=== PATIENT | male | born 1950 | race Caucasian/White ===

== ENCOUNTER → 2017-10-02 | Outpatient (CLI) | payer OTHER | END | disposition home or self-care (01) | LOC: RX STUDY 08:15 | DX: R19.5 Other fecal abnormalities (principal) ==

== ENCOUNTER 2018-03-22 16:54 | Emergency (ER) | payer OTHER ==
[~2018-03-22] VITALS: Ht 231.1 cm; Wt 88.9 kg
[2018-03-22] MEDS ORDERED: FORTAMET1000 MG (17:01)
[2018-03-22] MEDS ORDERED: ZOCOR20 MG (17:02)
[2018-03-22] MEDS ORDERED: METOPROLOL SUCC50 MG (17:03)
[2018-03-22] MEDS ORDERED: TORADOL60 MG IM (21:29)
[2018-03-22] MEDS ORDERED: SKELAXIN800 MG PO (21:29)
[2018-03-22] MEDS ORDERED: PERCOCET 5-3251 EACH PO (21:29)
[2018-03-22] MEDS ORDERED: ORPHENADRINE C100 MG PO (21:42)
== END 2018-03-22 21:49 | disposition home or self-care (01) ==
LOC: ER 16:54
DX: M62.830 Muscle spasm of back (principal); M51.36 Other intervertebral disc degeneration, lumbar region